=== PATIENT | female | born 1950 | race Caucasian/White ===

== ENCOUNTER 2021-07-04 19:48 | Inpatient (IN) | payer OTHER ==
[~2021-07-04] VITALS: Ht 160 cm; Wt 143.5 kg
[2021-07-04 20:28] LABS: HEMOGLOBIN 14.9 gm/dl (12.3-15.3); RED BLOOD COUNT 4.73 M/UL (4.00-5.10); WHITE BLOOD COUNT 5.3 K/UL (4.5-11.0)
[2021-07-04 21:01] LABS: BUN/CREATININE RATIO 13 (0-10)
[2021-07-04] MEDS ORDERED: PROTONIX 40 MG40 M1 PO (23:31)
[2021-07-04] MEDS ORDERED: VALSARTAN-HCTZ1 EACH PO (23:31)
[2021-07-04] MEDS ORDERED: TOPAMAX100 MG PO (23:31)
[2021-07-04] MEDS ORDERED: ROPINIROLE HC0.25 MG PO (23:32)
[2021-07-04] MEDS ORDERED: MELOXICAM7.5 MG PO (23:32)
[2021-07-04] MEDS ORDERED: NEURONTIN400 MG PO (23:32)
[2021-07-04] MEDS ORDERED: HYDROCODON-ACE1 EAC2 PO (23:33)
[2021-07-04] MEDS ORDERED: CLONAZEPAM1 MG PO (23:33)
[2021-07-05 05:34] LABS: HEMOGLOBIN 13.6 gm/dl (12.3-15.3); RED BLOOD COUNT 4.39 M/UL (4.00-5.10); WHITE BLOOD COUNT 4.4 K/UL (4.5-11.0)
--- NOTE | 2021-07-05 09:02 | NUR ---
PT IS ALERT AND ORIENTED X3, PT STATES SHE DOES NOT WISH TO BE INTUBATED, SHE STATES SHE HAS A LIVING WILL THAT SAYS SHE IS A DNR. I SPOKE WITH THE GRANDSON ABOUT THE PAPER WORK FOR HER LIVING WILL, HE IS TRYING TO GET IN CONTACT WITH THE ATTORNY WHO HAS THE PAPERWORK. I HAVE SPOKE WITH DR. MARTIN ABOUT CHANGING CODE STATUS.
[2021-07-06 08:13] LABS: WHITE BLOOD COUNT 6.6 K/UL (4.5-11.0)
[2021-07-06 08:14] LABS: HEMOGLOBIN 14.6 gm/dl (12.3-15.3); RED BLOOD COUNT 4.68 M/UL (4.00-5.10)
[2021-07-07 04:51] LABS: HEMOGLOBIN 13.6 gm/dl (12.3-15.3); RED BLOOD COUNT 4.55 M/UL (4.00-5.10); WHITE BLOOD COUNT 7.4 K/UL (4.5-11.0)
[2021-07-07 05:11] LABS: BUN/CREATININE RATIO 29 (0-10)
[2021-07-08 08:11] LABS: HEMOGLOBIN 14.2 gm/dl (12.3-15.3); RED BLOOD COUNT 4.73 M/UL (4.00-5.10)
[2021-07-08 08:22] LABS: WHITE BLOOD COUNT 9.5 K/UL (4.5-11.0)
[2021-07-08 08:40] LABS: BUN/CREATININE RATIO 30 (0-10)
[2021-07-09 06:13] LABS: RED BLOOD COUNT 4.8 M/UL (4.00-5.10)
[2021-07-09 06:49] LABS: WHITE BLOOD COUNT 31.5 K/UL (4.5-11.0)
[2021-07-10 08:35] LABS: HEMOGLOBIN 14.3 gm/dl (12.3-15.3); RED BLOOD COUNT 4.52 M/UL (4.00-5.10)
[2021-07-10 08:38] LABS: WHITE BLOOD COUNT 19.7 K/UL (4.5-11.0)
[2021-07-11 05:30] LABS: HEMOGLOBIN 13.8 gm/dl (12.3-15.3); RED BLOOD COUNT 4.58 M/UL (4.00-5.10); WHITE BLOOD COUNT 23.4 K/UL (4.5-11.0)
[2021-07-12 04:00] LABS: HEMOGLOBIN 13.5 gm/dl (12.3-15.3); RED BLOOD COUNT 4.31 M/UL (4.00-5.10); WHITE BLOOD COUNT 20.9 K/UL (4.5-11.0)
[2021-07-13 05:44] LABS: HEMOGLOBIN 12.9 gm/dl (12.3-15.3); RED BLOOD COUNT 4.25 M/UL (4.00-5.10)
[2021-07-13 05:45] LABS: WHITE BLOOD COUNT 28.8 K/UL (4.5-11.0)
[2021-07-14 07:25] LABS: HEMOGLOBIN 12.7 gm/dl (12.3-15.3); RED BLOOD COUNT 4.11 M/UL (4.00-5.10)
[2021-07-15 05:16] LABS: HEMOGLOBIN 12.9 gm/dl (12.3-15.3); RED BLOOD COUNT 4.05 M/UL (4.00-5.10)
[2021-07-15 05:23] LABS: WHITE BLOOD COUNT 31.2 K/UL (4.5-11.0)
[2021-07-16 05:35] LABS: HEMOGLOBIN 12.6 gm/dl (12.3-15.3); RED BLOOD COUNT 4.04 M/UL (4.00-5.10)
[2021-07-16 05:38] LABS: WHITE BLOOD COUNT 34.3 K/UL (4.5-11.0)
--- NOTE | 2021-07-16 14:33 | NUR ---
07/16/21 1425: DISCUSSED WITH LURDES HUITRON AND BERNARDO (ARIA POWER) ABOUT MAKING PT COMFORT CARE TOMORROW 07/17 @ NOON. BERNARDO AGREED.
[2021-07-17 05:27] LABS: HEMOGLOBIN 13.2 gm/dl (12.3-15.3); RED BLOOD COUNT 4.15 M/UL (4.00-5.10)
--- NOTE | 2021-07-17 05:27 | NUR ---
ATTEMPTED TO CALL BERNARDO (NICOLAS) TO INFORM OF PT CONDITION DECLINING, UNABLE TO LEAVE A VOICEMAIL DUE TO MAILBOX BEING FULL.
--- NOTE | 2021-07-17 05:30 | NUR ---
07/17/21 0520: XRAY OBTAINTED, WHEN TECHS LEFT ROOM PT O2 DROPPED DOWN TO 80%, RN TO ROOM. CHECKED PT PULSE OX, REPOSITIONED PT AND TURNED PT, UNABLE TO GET PT SAT UP. CALLED FOR RESP TO ROOM, BEGAN BAGGING PT, PT O2 CAME UP TO 83% AFTER BAGGING FOR FEW MINUTES, SWITCHED PT BACK TO VENT AND 02 DROPPED BACK DOWN TO 79%. FAMILY DOES WISH TO MAKE PT COMFORT CARE TODAY AT NOON, PT IS CURRENTLY DNR. ATTEMPTED TO CALL FAMILY WITH UPDATE (SEE OTHER NOTES).
--- NOTE | 2021-07-17 06:22 | NUR ---
07/17/21 0545: ATTEMPTED TO CALL PTS GRANDSON (NICOLAS) TO INFORM OF PTS DECLINING CONDITION, NO ANSWER, UNABLE TO LEAVE VOICEMAIL DUE TO MAILBOX BEING FULL.
== END 2021-07-17 10:22 | disposition expired | DRG 207 ==
LOC: ER1 19:48 → CCU 21:37 → CDU 21:37 → CCU 22:30
PROVIDERS: Family Medicine; Internal Medicine; Internal Medicine Infectious Disease; Internal Medicine Pulmonary Disease; ADMIT Internal Medicine
PROC: 8E0ZXY6 Isolation (ICD-10-PCS; principal; 2021-07-04)
PROC: XW033E5 Introduction of Remdesivir Anti-infective into Peripheral Vein, Percutaneous Approach, New Technology Group 5 (ICD-10-PCS; 2021-07-04)
PROC: 3E0333Z Introduction of Anti-inflammatory into Peripheral Vein, Percutaneous Approach (ICD-10-PCS; 2021-07-04)
PROC: XW033H5 Introduction of Tocilizumab into Peripheral Vein, Percutaneous Approach, New Technology Group 5 (ICD-10-PCS; 2021-07-04)
PROC: 5A1955Z Respiratory Ventilation, Greater than 96 Consecutive Hours (ICD-10-PCS; 2021-07-08)
PROC: 02HV33Z Insertion of Infusion Device into Superior Vena Cava, Percutaneous Approach (ICD-10-PCS; 2021-07-08)
PROC: 0BH18EZ Insertion of Endotracheal Airway into Trachea, Via Natural or Artificial Opening Endoscopic (ICD-10-PCS; 2021-07-08)
PROC: 3E033XZ Introduction of Vasopressor into Peripheral Vein, Percutaneous Approach (ICD-10-PCS; 2021-07-09)
DX: U07.1 COVID-19 (principal); J12.82 Pneumonia due to coronavirus disease 2019; J80 Acute respiratory distress syndrome; A41.89 Other specified sepsis; R65.21 Severe sepsis with septic shock; J15.9 Unspecified bacterial pneumonia; E66.2 Morbid (severe) obesity with alveolar hypoventilation; E87.1 Hypo-osmolality and hyponatremia; E87.2 Acidosis; N17.9 Acute kidney failure, unspecified; Z68.43 Body mass index [BMI] 50.0-59.9, adult; Z66 Do not resuscitate; E87.6 Hypokalemia; E80.6 Other disorders of bilirubin metabolism; E87.5 Hyperkalemia; E11.65 Type 2 diabetes mellitus with hyperglycemia; G89.29 Other chronic pain; G62.9 Polyneuropathy, unspecified; Z96.653 Presence of artificial knee joint, bilateral; E11.40 Type 2 diabetes mellitus with diabetic neuropathy, unspecified; M19.91 Primary osteoarthritis, unspecified site; E86.0 Dehydration; F41.9 Anxiety disorder, unspecified; Z99.81 Dependence on supplemental oxygen; Z51.5 Encounter for palliative care; Z23 Encounter for immunization
CPT/HCPCS: 31500; 36415; 36600; 71045; 80048; 80053; 80061; 81001; 82550; 82553; 82607; 82728; 82746; 82803; 82962; 83036; 83605; 83615; 83735; 83874; 83880; 84100; 84132; 84439; 84443; 84484; 85025; 85027; 85379; 85384; 85652; 86140; 87040; 87070; 87205; 93005; 94002; 94003; 94640; 94660; 94760; 96374; 96375; 99285; A6212; C1751; C9113; J0610; J0696; J1100; J1205; J1650; J2185; J2704; J3010; J3480; J7030; J7040; J7070; J7120; P9047; Q0249; U0002